=== PATIENT | male | born 1970 | race Native Hawaiian/Other Pacific Islander ===

== ENCOUNTER 2021-02-22 19:41 | Emergency (ER) | payer OTHER ==
[~2021-02-22] VITALS: Ht 182.9 cm; Wt 128.4 kg
[2021-02-22 20:41] LABS: PLATELET COUNT 194 K/uL (142-355)
[2021-02-22 20:49] LABS: POTASSIUM 3.7 mmol/L (3.6-5.2)
[2021-02-22 21:04] VITALS: BP 133/83; TEMP 98
== END 2021-02-22 21:04 ==
LOC: ED 19:41
PROVIDERS: Emergency Medicine
PROC: 0HQ1XZZ Repair Face Skin, External Approach (ICD-10-PCS; principal; 2021-02-22)
DX: S01.81XA Laceration without foreign body of other part of head, initial encounter (principal); S00.83XA Contusion of other part of head, initial encounter; Y04.2XXA Assault by strike against or bumped into by another person, initial encounter; Y92.149 Unspecified place in prison as the place of occurrence of the external cause
CPT/HCPCS: 80048; 85027; 93005; 99283